=== PATIENT | male | born 1960 | race Caucasian/White ===

== ENCOUNTER 2017-07-22 21:59 | Emergency (ER) | payer BC ==
[~2017-07-22] VITALS: Ht 167.6 cm; Wt 95.0 kg
[~2017-07-22 21:59] MED LIST: AIRBORNE; DOXYCYCLINE 10100 MG PO; MUCINEX DM 30 M1 TE1 PO; SUDAFED 12 HOU120 MG PO; VITAMIN C500 MG PO; [UNRECOGNIZED DRUG - OTHER] PO
[2017-07-22 22:01] VITALS: BP 129/93; TEMP 97.3
[2017-07-22] MEDS ORDERED: THRIVE PATCH (22:07)
[2017-07-22 23:03] VITALS: PULSE 83
== END 2017-07-22 23:03 | disposition home or self-care (01) ==
LOC: COL.ER 21:59
DX: L50.9 Urticaria, unspecified (principal); Z98.890 Other specified postprocedural states
CPT/HCPCS: J2930

== ENCOUNTER 2020-07-10 11:40 | Emergency (ER) | payer BC ==
[~2020-07-10 11:40] MED LIST changes: +THRIVE PATCH
--- NOTE | 2020-07-10 11:55 | NUR ---
SW consulted for code ED, recieved information from EMT Patient name Elder Pinto 06/30/1987 Marissa Pinto [address] [facility], [place] [address]. PH , reports that patient reported having a hard time breathing and got up and fell over. reports dialing 911 and she thought her spouse was not breathing, indicated putting on his back and niece called to assist with obtaining emergency contact. PCP Nata Kohli on [facility], RX obtained [facility]. Talk with spouse about options for preparing . Contacted nikole, will response less than 30 minutes. notifying family. reports home selection [facility], and the patient is not an organ donor. SW offered additional supports.Nothing follows.
[2020-07-10 13:43] VITALS: BP 0/0; PULSE 0
== END 2020-07-10 13:38 | disposition expired ==
LOC: COL.ER 11:40
DX: I46.9 Cardiac arrest, cause unspecified (principal)
CPT/HCPCS: J0171; J0282; J3475